=== PATIENT | female | born 1980 | race Caucasian/White ===

== ENCOUNTER 2023-10-31 12:33 | Inpatient (IN) | payer OTHER ==
[2023-10-31] MEDS: SODIUM CHLORIDE 0.9% 1,000 ML IV STA ×2 (13:55→15:26)
[2023-10-31] MEDS: ONDANSETRON 4 MG/2 ML VIAL IVP STA (14:08)
[2023-10-31 14:10] LABS: HCT 43.3 % (34.0-46.0); HGB 14.7 gm/dL (11.4-16.0); MCH 30.8 pg (25.0-35.0); MCV 90.4 fL (80.0-100.0); Mean Platelet Volume 7.3; Platelet Count 266 k/uL (150-450); RBC 4.79 m/uL (3.80-5.40); RDW 13.1 % (11.5-15.5)
[2023-10-31] MEDS: KETOROLAC 15 MG/ML 1 ML VIAL IVP STA (14:10)
[2023-10-31 14:22] LABS: ALT 18 U/L (4-34); AST 26 U/L (14-36); African American GFR (CKD) >90 (>60 ml/min/1.73 sqM); Albumin 3.5 g/dL (3.5-5.0); Alkaline Phosphatase 74 U/L (38-126); Anion Gap 9 mmol/L; Blood Urea Nitrogen 12 mg/dL (7-17); Calcium 8.6 mg/dL (8.4-10.2); Carbon Dioxide 23 mmol/L (22-30); Chloride 105 mmol/L (98-107); Glucose 118 mg/dL (74-99); Non-African American GFR(CKD) >90 (>60 ml/min/1.73 sqM); Potassium 4.4 mmol/L (3.5-5.1); Sodium 137 mmol/L (137-145); Total Bilirubin 0.4 mg/dL (0.2-1.3); Total Protein 6.2 g/dL (6.3-8.2)
--- NOTE | 2023-10-31 14:48 | ED ---
Fever HPI - General Chief Complaint: Fever Stated Complaint: Vomitting, fever, chills Time Seen by Provider: 10/31/23 14:47 Source: patient, RN notes reviewed Mode of arrival: ambulatory Limitations: no limitations - History of Present Illness Initial Comments: Patient is a 43-year-old female presented to the ER with chief complaint of fever. Patient states she has been ill since July 2023. She has been treated multiple times with Augmentin for strep throat. She states about 2 weeks ago she did have a root canal. She reports she was seen by Dr. Maria yesterday and received blood work due to fevers and chills. She is now endorsing nausea and vomiting. She also is reporting head congestion and mouth sores. She denies any chest pain, shortness of breath, abdominal pain, constipation/diarrhea, urinary complaints. - Related Data Home Medications Medication Instructions Recorded Confirmed Amoxic-Pot Clav 500-125 mg 1 tab PO TID 10/31/23 10/31/23 [Augmentin 500-125 mg] Ibuprofen [Motrin] 800 mg PO Q8H PRN 10/31/23 10/31/23 Nystatin 100,000 Unit/ml Susp 4 ml PO DIRECTED 10/31/23 10/31/23 [Mycostatin Oral Susp] valACYclovir HCL [Valtrex] 1,000 mg PO HS 10/31/23 10/31/23 Allergies Allergy/AdvReac Type Severity Reaction Status Date / Time codeine AdvReac Nausea & Verified 10/31/23 16:40 Vomiting Review of Systems ROS Statement: Those systems with pertinent positive or pertinent negative responses have been documented in the HPI. ROS Other: All systems not noted in ROS Statement are negative. Past Medical History Past Medical History: No Reported History History of Any Multi-Drug Resistant Organisms: None Reported Past Surgical History: Section Additional Past Surgical History / Comment(s): ablasion uterine Past Psychological History: No Psychological Hx Reported Smoking Status: Current every day smoker Past Alcohol Use History: Occasional Past Drug Use History: None Reported General Exam General appearance: alert, in no apparent distress Head exam: Present: atraumatic, normocephalic, normal inspection Eye exam: Present: normal appearance, PERRL, EOMI. Absent: scleral icterus, conjunctival injection, periorbital swelling ENT exam: Present: normal exam, mucous membranes moist, TM's normal bilaterally, other (Multiple white ulcers in the mouth. No drainable abscess present.) Neck exam: Present: tenderness (Mandible and TMJ) Respiratory exam: Present: normal lung sounds bilaterally. Absent: respiratory distress, wheezes, rales, rhonchi, stridor Cardiovascular Exam: Present: regular rate, normal rhythm, normal heart sounds. Absent: systolic murmur, diastolic murmur, rubs, gallop, clicks Neurological exam: Present: alert, oriented X3, CN II-XII intact Psychiatric exam: Present: normal affect, normal mood Skin exam: Present: warm, intact, normal color, diaphoretic (Mild) Course Vital Signs 10/31/23 13:08 Temperature 100.7 F H Pulse Rate 112 H Respiratory 18 Rate Blood Pressure 119/69 O2 Sat by Pulse 97 Oximetry - Reevaluation(s) Reevaluation #1: 10/31/23 14:[address] Maria who would like patient admitted. She also reports patient had blood work completed yesterday significant for white blood cell count of 11, neutrophils 10. She would also like Dr. Gillette and cardiology on consult. As she is concerned for endocarditis due to recent dental work. Reevaluation #2: 10/31/23 16:[address] Childers who accepts medical management. Medical Decision Making - Medical Decision Making Was pt. sent in by a medical professional or institution (, PA, TURRET PUNCH OPERATOR, urgent care, hospital, or intermediate...) When possible be specific @ -No Did you speak to anyone other than the patient for history (EMS, parent, family, police, friend...)? What history was obtained from this source @ -No Did you review nursing and triage notes (agree or disagree)? Why? @ -I reviewed and agree with nursing and triage notes Were old charts reviewed (outside hosp., previous admission, EMS record, old EKG, old radiological studies, urgent care reports/EKG's, intermediate records)? Report findings @ -No old charts were reviewed Differential Diagnosis (chest pain, altered mental status, abdominal pain women, abdominal pain men, vaginal bleeding, weakness, fever, dyspnea, syncope, headache, dizziness, GI bleed, back pain, seizure, CVA, palpatations, mental health, musculoskeletal)? @ -[Differential Fever:Pneumonia, viral URI, endocarditis, myocarditis, pericarditis, otitis, sinusitis, peritonsillar Abscess, retropharyngeal Abscess, epiglottitis, peritonitis, appendicitis, Angle cystitis, diverticulitis, hepatitis, colitis, UTI, PID, TOA, pyelonephritis, prostatitis, epididymitis, meningitis, encephalitis, pulmonary embolism, CVA, thyroid storm, pancreatitis, adrenal crisis, cavernous sinus thrombosis, this is not meant to be an all- inclusive list. EKG interpreted by me (3pts min.). @ -None X-rays interpreted by me (1pt min.). @ -X-ray interpreted by me as negative for acute cardiopulmonary process. CT interpreted by me (1pt min.). @ -None done U/S interpreted by me (1pt. min.). @ -None done What testing was considered but not performed or refused? (CT, X-rays, U/S, labs)? Why? @ -None What meds were considered but not given or refused? Why? @ -None Did you discuss the management of the patient with other professionals (professionals i.e. , PA, TURRET PUNCH OPERATOR, lab, RT, psych nurse, social work administrator, manufacturing mechanic, teacher, county records management officer, adult protective caseworker)? Give summary @ -Yes, I spoke with Dr. Maria, PCP, who states she would like patient admitted for infectious workup. Lab work completed yesterday by Dr. Maria significant for WBC 11. She also would like cardiology on consult as she is concerned for possible endocarditis due to recent dental work. I also spoke with Dr. Childers, [facility], who accepts medical admission. Was smoking cessation discussed for >3mins.? @ -No Was critical care preformed (if so, how long)? @ -No Were there social determinants of health that impacted care today? How? (Homelessness, low income, unemployed, alcoholism, drug addiction, transportation, low edu. Level, literacy, decrease access to med. care, penitentiary, rehab)? @ -No Was there de-escalation of care discussed even if they declined (Discuss DNR or withdrawal of care, Hospice)? DNR status @ -No What co-morbidities impacted this encounter? (DM, HTN, Smoking, COPD, CAD, Cancer, CVA, ARF, Chemo, Hep., AIDS, mental health diagnosis, sleep apnea, morbid obesity)? @ -None Was patient admitted / discharged? Hospital course, mention meds given and route, prescriptions, significant lab abnormalities, going to OR and other pertinent info. @ -Admitted. Patient is a 43-year-old female presented to the ER with chief complaint of fever. History and physical exam completed. Vitals significant for temperature of 100F and heart rate of 112 on arrival. Patient no signs of acute distress. Patient was mildly diaphoretic on exam. Patient had multiple ulcers in mouth. Lung sounds clear to auscultation bilaterally. Heart sounds normal. Labs significant for white blood cell count 18, lactic 2.8. Urine without signs of infection. Chest x-ray interpreted by me negative for acute cardiopulmonary process. COVID, influenza, RSV, strep negative. Patient received 2 L IV fluids, Toradol and Zofran for pain control in the ER, with improvement. Admission considered due to leukocytosis and fever of unknown origin. Spoke with Dr. Maria, patient's PCP, who reports yesterday labs significant for white blood cell count of 11 with a left shift. She is concerned for endocarditis due to patient's recent dental work. She would like patient admitted for infectious disease consult. I spoke with Dr. Childers, [facility] physician, who accepts medical admission. Patient started on IV vancomycin and Unasyn. ID and cardiology on consult. Echo ordered. Results discussed with patient, all questions answered. Patient agreeable for admission for further management. Undiagnosed new problem with uncertain prognosis? @ -No Drug Therapy requiring intensive monitoring for toxicity (Heparin, Nitro, Insulin, Cardizem)? @ -No Were any procedures done? @ -No Diagnosis/symptom? @ -Leukocytosis/fever unknown origin Acute, or Chronic, or Acute on Chronic? @ -Acute Uncomplicated (without systemic symptoms) or Complicated (systemic symptoms)? @ -Complicated Side effects of treatment? @ -No Exacerbation, Progression, or Severe Exacerbation? @ -No Poses a threat to life or bodily function? How? (Chest pain, [place], [place], pneumonia, PE, COPD, DKA, ARF, appy, cholecystitis, CVA, Diverticulitis, Homicidal, Suicidal, threat to staff... and all critical care pts) @ -Yes, infection can lead to sepsis which can be life threatening. - Lab Data Result diagrams: 10/31/23 13:50 10/31/23 13:50 Lab Results 10/31/23 10/31/23 10/31/23 Range/Units 13:50 13:50 13:50 WBC 18.0 H (3.8-10.6) k/uL RBC 4.79 (3.80-5.40) m/uL Hgb 14.7 (11.4-16.0) gm/dL Hct 43.3 (34.0-46.0) % MCV 90.4 (80.0-100.0) fL MCH 30.8 (25.0-35.0) pg MCHC 34.0 (31.0-37.0) g/dL RDW 13.1 (11.5-15.5) % Plt Count 266 (150-450) k/uL MPV 7.3 Sodium 137 (137-145) mmol/L Potassium 4.4 (3.5-5.1) mmol/L Chloride 105 (98-107) mmol/L Carbon Dioxide 23 (22-30) mmol/L Anion Gap 9 mmol/L BUN 12 (7-17) mg/dL Creatinine 0.48 L (0.52-1.04) mg/dL Est GFR (CKD-EPI)AfAm >90 (>60 ml/min/1.73 sqM) Est GFR (CKD-EPI)NonAf >90 (>60 ml/min/1.73 sqM) Glucose 118 H (74-99) mg/dL Lactic Ac Sepsis Rflx Plasma Lactic Acid Kade 2.8 H* (0.7-2.0) mmol/L Calcium 8.6 (8.4-10.2) mg/dL Total Bilirubin 0.4 (0.2-1.3) mg/dL AST 26 (14-36) U/L ALT 18 (4-34) U/L Alkaline Phosphatase 74 (38-126) U/L Total Protein 6.2 L (6.3-8.2) g/dL Albumin 3.5 (3.5-5.0) g/dL Urine Color Urine Appearance (Clear) Urine pH (5.0-8.0) Ur Specific Yale (1.001-1.035) Urine Protein (Negative) Urine Glucose (UA) (Negative) Urine Ketones (Negative) Urine Blood (Negative) Urine Nitrite (Negative) Urine Bilirubin (Negative) Urine Urobilinogen (<2.0) mg/dL Ur Leukocyte Esterase (Negative) Urine RBC (0-5) /hpf Urine WBC (0-5) /hpf Ur Squamous Epith Cells (0-4) /hpf Urine Bacteria (None) /hpf Hyaline Casts (0-2) /lpf Urine Mucus (None) /hpf Urine Yeast (Budding) (None) /hpf Urine HCG, Qual (Not Detectd) Influenza Type A (PCR) (Not Detectd) Influenza Type B (PCR) (Not Detectd) RSV (PCR) (Not Detectd) SARS-CoV-2 (PCR) (Not Detectd) Group A Strep (PCR) (Not Detectd) 10/31/23 10/31/23 10/31/23 Range/Units 13:50 13:50 13:50 WBC (3.8-10.6) k/uL RBC (3.80-5.40) m/uL Hgb (11.4-16.0) gm/dL Hct (34.0-46.0) % MCV (80.0-100.0) fL MCH (25.0-35.0) pg MCHC (31.0-37.0) g/dL RDW (11.5-15.5) % Plt Count (150-450) k/uL MPV Sodium (137-145) mmol/L Potassium (3.5-5.1) mmol/L Chloride (98-107) mmol/L Carbon Dioxide (22-30) mmol/L Anion Gap mmol/L BUN (7-17) mg/dL Creatinine (0.52-1.04) mg/dL Est GFR (CKD-EPI)AfAm (>60 ml/min/1.73 sqM) Est GFR (CKD-EPI)NonAf (>60 ml/min/1.73 sqM) Glucose (74-99) mg/dL Lactic Ac Sepsis Rflx Plasma Lactic Acid Kade (0.7-2.0) mmol/L Calcium (8.4-10.2) mg/dL Total Bilirubin (0.2-1.3) mg/dL AST (14-36) U/L ALT (4-34) U/L Alkaline Phosphatase (38-126) U/L Total Protein (6.3-8.2) g/dL Albumin (3.5-5.0) g/dL Urine Color Light Yellow Urine Appearance Cloudy H (Clear) Urine pH 5.5 (5.0-8.0) Ur Specific Yale 1.019 (1.001-1.035) Urine Protein Trace H (Negative) Urine Glucose (UA) Negative (Negative) Urine Ketones 4+ H (Negative) Urine Blood Small H (Negative) Urine Nitrite Negative (Negative) Urine Bilirubin Negative (Negative) Urine Urobilinogen <2.0 (<2.0) mg/dL Ur Leukocyte Esterase Negative (Negative) Urine RBC 8 H (0-5) /hpf Urine WBC 8 H (0-5) /hpf Ur Squamous Epith Cells 17 H (0-4) /hpf Urine Bacteria Rare H (None) /hpf Hyaline Casts 1 (0-2) /lpf Urine Mucus Rare H (None) /hpf Urine Yeast (Budding) Few H (None) /hpf Urine HCG, Qual (Not Detectd) Influenza Type A (PCR) Not Detected (Not Detectd) Influenza Type B (PCR) Not Detected (Not Detectd) RSV (PCR) Not Detected (Not Detectd) SARS-CoV-2 (PCR) Not Detected (Not Detectd) Group A Strep (PCR) NOT DETECTED (Not Detectd) 10/31/23 10/31/23 Range/Units 13:50 14:24 WBC (3.8-10.6) k/uL RBC (3.80-5.40) m/uL Hgb (11.4-16.0) gm/dL Hct (34.0-46.0) % MCV (80.0-100.0) fL MCH (25.0-35.0) pg MCHC (31.0-37.0) g/dL RDW (11.5-15.5) % Plt Count (150-450) k/uL MPV Sodium (137-145) mmol/L Potassium (3.5-5.1) mmol/L Chloride (98-107) mmol/L Carbon Dioxide (22-30) mmol/L Anion Gap mmol/L BUN (7-17) mg/dL Creatinine (0.52-1.04) mg/dL Est GFR (CKD-EPI)AfAm (>60 ml/min/1.73 sqM) Est GFR (CKD-EPI)NonAf (>60 ml/min/1.73 sqM) Glucose (74-99) mg/dL Lactic Ac Sepsis Rflx Y Plasma Lactic Acid Kade (0.7-2.0) mmol/L Calcium (8.4-10.2) mg/dL Total Bilirubin (0.2-1.3) mg/dL AST (14-36) U/L ALT (4-34) U/L Alkaline Phosphatase (38-126) U/L Total Protein (6.3-8.2) g/dL Albumin (3.5-5.0) g/dL Urine Color Urine Appearance (Clear) Urine pH (5.0-8.0) Ur Specific Yale (1.001-1.035) Urine Protein (Negative) Urine Glucose (UA) (Negative) Urine Ketones (Negative) Urine Blood (Negative) Urine Nitrite (Negative) Urine Bilirubin (Negative) Urine Urobilinogen (<2.0) mg/dL Ur Leukocyte Esterase (Negative) Urine RBC (0-5) /hpf Urine WBC (0-5) /hpf Ur Squamous Epith Cells (0-4) /hpf Urine Bacteria (None) /hpf Hyaline Casts (0-2) /lpf Urine Mucus (None) /hpf Urine Yeast (Budding) (None) /hpf Urine HCG, Qual Not Detected (Not Detectd) Influenza Type A (PCR) (Not Detectd) Influenza Type B (PCR) (Not Detectd) RSV (PCR) (Not Detectd) SARS-CoV-2 (PCR) (Not Detectd) Group A Strep (PCR) (Not Detectd) - Radiology Data Radiology results: report reviewed, image reviewed Disposition Clinical Impression: Leukocytosis, Fever Disposition: ADMITTED IP TO THIS HOSP Condition: Fair Time of Disposition: 16:04
[2023-10-31 14:55] LABS: Appearance,Urine Cloudy (Clear); Bacteria,Urine Rare /hpf; Bilirubin,Urine Negative (Negative); Blood,Urine Small (Negative); Budding Yeast,Urine Few /hpf; Color,Urine Light Yellow; Glucose,Urine (UA) Negative (Negative); Hyaline Casts,Urine 1 /lpf (0-2); Ketones,Urine 4+ (Negative); Leukocyte Esterase,Urine Negative (Negative); Mucus,Urine Rare /hpf; Nitrite,Urine Negative (Negative); PH, Urine 5.5 (5.0-8.0); Protein,Urine Trace (Negative); RBC,Urine 8 /hpf (0-5); Specific Gravity,Urine 1.019 (1.001-1.035); Squamous Epithelial Cell,Urine 17 /hpf (0-4); Urobilinogen,Urine <2.0 mg/dL (<2.0); WBC,Urine 8 /hpf (0-5)
--- NOTE | 2023-10-31 15:45 | XR ---
EXAMINATION TYPE: XR chest 2V DATE OF EXAM: 10/31/2023 COMPARISON: None HISTORY: 43-year-old female with fever, nausea, vomiting TECHNIQUE: PA and lateral views FINDINGS: The cardiomediastinal silhouette, aorta, and pulmonary vasculature are within normal limits. Lungs an d pleural spaces are clear. IMPRESSION: No acute cardiopulmonary process.
[2023-10-31] MEDS ORDERED: VANCOMYCIN IV PER PHARMACY 1 EACH MISC MISCELLANE PRN (16:00)
[2023-10-31] MEDS ORDERED: NALOXONE 0.4 MG/ML 1 ML VIAL IV PRN (16:01)
[2023-10-31] MEDS: AMPICILLIN-SULBACTAM 3 GM in SODIUM CHLORIDE 0.9% 100 ML IVPB STA (16:26)
[2023-10-31] MEDS: ACETAMINOPHEN TAB 325 MG TAB PO STA (16:27)
[2023-10-31] MEDS: ONDANSETRON 4 MG/2 ML VIAL IVP PRN (17:19)
[2023-10-31] MEDS: VANCOMYCIN 1,250 MG in SODIUM CHLORIDE 0.9% 250 ML IVPB STA (17:20)
[2023-10-31] MEDS: SODIUM CHLORIDE 0.9% 1,000 ML IV SCH (18:04)
--- NOTE | 2023-10-31 21:57 | P.CONS ---
History of Present Illness - Reason for Consult Consult date: 10/31/23 - History of Present Illness Patient is a 43-year-old female current everyday smoker complaining of recurrent infection since July 2023 patient mention she did have strep throat x 3 and also have a COVID-19 and infected tooth for the patient did have a CT done patient presenting to the ER concerning for fever that apparently getting worse for the last few days patient complaining of pain to the bilateral lower jaw area describing it to be mostly throbbing moderate intensity without any radiation complaining of some sore throat but denies difficulty swallowing. Denies having any chest pain she did have a cough but not bring up any sputum nausea but no vomiting no abdominal pain or any diarrhea patient on presentation to the hospital did have a fever 100.7 F, patient was tachycardic but not hypotensive or hypoxic white count was 18,000 creatinine 0.48 lactic acid was elevated urine has been positive influenza RSV COVID testing has been negative patient did have a chest x-ray no acute cardiopulmonary disease process patient received a dose of Unasyn subsequently switched to vancomycin infectious disease was consulted for further management of antibiotic therapy Past Medical History Past Medical History: No Reported History History of Any Multi-Drug Resistant Organisms: None Reported Past Surgical History: Section Additional Past Surgical History / Comment(s): ablasion uterine Past Psychological History: No Psychological Hx Reported Smoking Status: Current every day smoker Past Alcohol Use History: Occasional Past Drug Use History: None Reported Medications and Allergies Home Medications Medication Instructions Recorded Confirmed Type Amoxic-Pot Clav 500-125 mg 1 tab PO TID 10/31/23 10/31/23 History [Augmentin 500-125 mg] Ibuprofen [Motrin] 800 mg PO Q8H PRN 10/31/23 10/31/23 History Nystatin 100,000 Unit/ml Susp 4 ml PO DIRECTED 10/31/23 10/31/23 History [Mycostatin Oral Susp] valACYclovir HCL [Valtrex] 1,000 mg PO HS 10/31/23 10/31/23 History Allergies Allergy/AdvReac Type Severity Reaction Status Date / Time codeine AdvReac Nausea & Verified 10/31/23 16:40 Vomiting Physical Exam Vitals: Vital Signs Temp Pulse Resp BP Pulse Ox 10/31/23 13:08 100.7 F H 112 H 18 119/69 97 Intake and Output 03/02/1710/31/23 10/31/23 06:59 14:59 22:59 Other: Weight 60.781 kg Results CBC & Chem 7: 10/31/23 13:50 10/31/23 13:50 Labs: Abnormal Lab Results - Last 24 Hours (Table) 10/31/23 10/31/23 10/31/23 Range/Units 13:50 13:50 13:50 WBC 18.0 H (3.8-10.6) k/uL Creatinine 0.48 L (0.52-1.04) mg/dL Glucose 118 H (74-99) mg/dL Plasma Lactic Acid Kade 2.8 H* (0.7-2.0) mmol/L Total Protein 6.2 L (6.3-8.2) g/dL Urine Appearance (Clear) Urine Protein (Negative) Urine Ketones (Negative) Urine Blood (Negative) Urine RBC (0-5) /hpf Urine WBC (0-5) /hpf Ur Squamous Epith Cells (0-4) /hpf Urine Bacteria (None) /hpf Urine Mucus (None) /hpf Urine Yeast (Budding) (None) /hpf 10/31/23 Range/Units 13:50 WBC (3.8-10.6) k/uL Creatinine (0.52-1.04) mg/dL Glucose (74-99) mg/dL Plasma Lactic Acid Kade (0.7-2.0) mmol/L Total Protein (6.3-8.2) g/dL Urine Appearance Cloudy H (Clear) Urine Protein Trace H (Negative) Urine Ketones 4+ H (Negative) Urine Blood Small H (Negative) Urine RBC 8 H (0-5) /hpf Urine WBC 8 H (0-5) /hpf Ur Squamous Epith Cells 17 H (0-4) /hpf Urine Bacteria Rare H (None) /hpf Urine Mucus Rare H (None) /hpf Urine Yeast (Budding) Few H (None) /hpf Assessment and Plan Plan: 1patient presented to hospital with sepsis in this patient who did have fever elevated white count elevated lactic acid source likely infected tooth and the patient did have significant purulent tonsillopharyngitis especially to the left side and will need to cover for the polymicrobial oral antoni 2-Unasyn 3 g every 6 hours and discontinue vancomycin 3-we will check cultures and inflammatory markers We will follow on clinical condition and cultures to further adjust medication if needed Thank you for this consultation we will follow the patient along with you Dictation was produced using [employer] dictation software. please excuse any grammatical, word or spelling errors.
[2023-10-31] MEDS ORDERED: NYSTATIN 100,000 UNIT/ML SUSP 500,000 UNIT/5 ML CUP PO SCH (22:00)
[2023-10-31] MEDS: KETOROLAC 15 MG/ML 1 ML VIAL IVP PRN (22:30)
[2023-10-31] MEDS: AMPICILLIN-SULBACTAM 3 GM in SODIUM CHLORIDE 0.9% 100 ML IVPB SCH (22:31)
[2023-10-31] MEDS: TRIMETHOBENZAMIDE 100 MG/ML 2 ML VIAL IM STA (22:32)
[2023-11-01] MEDS ORDERED: VANCOMYCIN 1,000 MG in SODIUM CHLORIDE 0.9% 250 ML IVPB SCH (01:00)
[2023-11-01] MEDS: ONDANSETRON 4 MG/2 ML VIAL IVP PRN (04:18)
--- NOTE | 2023-11-01 09:01 | P.CRDCN ---
History of Present Illness Consult date: 11/01/23 History of present illness: History of present illness: This is a 43-year-old female has a past medical history of tobacco use and dependence. Patient has been treated for strep throat since July on multiple courses of antibiotics. She also underwent a root canal 2 weeks ago. She followed with her PCP yesterday was found to have fever and chills as well as nausea and vomiting was sent into the hospital for further evaluation. We have been asked to evaluate the patient for leukocytosis and fever. Patient denies having any chest pain, no previous cardiac history. Patient has been seen by infectious disease and covered with antibiotics. Chest x-ray: No acute process WBC 18, hemoglobin 14.7 electrolytes normal. BUN 12 creatinine 0.48. Lactic acid initially 2.8 followed by 0.6. Liver enzymes are normal. Urinalysis 4+ ketones, small blood, squamous cell 17. Urine hCG not detected. Influenza A, influenza B, RSV, COVID-19, group A strep not detected. Home cardiac medications: None Review Of Systems: At the time of my exam: CONSTITUTIONAL: Denies fever or chills. HEENT: Denies blurred vision, vision changes, or eye pain. Denies hemoptysis. Pain bilateral jaw. CARDIOVASCULAR: Denies chest pain. Denies orthopnea. Denies PND. Denies palpitations RESPIRATORY: Denies shortness of breath. GASTROINTESTINAL: Denies abdominal pain. Denies nausea or vomiting. HEMATOLOGIC: Denies bleeding disorders. GENITOURINARY: Denies any blood in urine. SKIN: Denies pruitis. Denies rash. Physical examination: Gen: This is a 43-year-old female in no acute distress VS: reviewed HEENT: Head is atraumatic, normocephalic. Pupils equal, round. Sclerae is ani cteric. NECK: Supple. No JVD. LUNGS: Clear to auscultation. No wheezes or rhonchi. No intercostal retractions. HEART: Regular rate and rhythm. No murmur. ABDOMEN: Soft No tenderness. EXTREMITIES: No pedal edema. No calf tenderness. NEUROLOGICAL: Patient is awake, alert and oriented x3. Assessment: Jaw pain Recent root canal Recent strep throat Tobacco use and dependence Fever, leukocytosis Lactic acidosis Plan: Obtain EKG Obtain 2-D echocardiogram and Doppler study to assess cardiac structure and function Further recommendations to follow based upon clinical course Thank you kindly for this consultation. Nurse practitioner note has been reviewed, I agree with documented findings and plan of care. Patient was seen and examined. Past Medical History Past Medical History: No Reported History Additional Past Medical History / Comment(s): Smoker History of Any Multi-Drug Resistant Organisms: None Reported Past Surgical History: Section Additional Past Surgical History / Comment(s): ablasion uterine Past Anesthesia/Blood Transfusion Reactions: No Reported Reaction Past Psychological History: No Psychological Hx Reported Smoking Status: Current every day smoker Past Alcohol Use History: Occasional Past Drug Use History: None Reported Medications and Allergies Home Medications Medication Instructions Recorded Confirmed Type Amoxic-Pot Clav 500-125 mg 1 tab PO TID 10/31/23 10/31/23 History [Augmentin 500-125 mg] Ibuprofen [Motrin] 800 mg PO Q8H PRN 10/31/23 10/31/23 History Nystatin 100,000 Unit/ml Susp 4 ml PO DIRECTED 10/31/23 10/31/23 History [Mycostatin Oral Susp] valACYclovir HCL [Valtrex] 1,000 mg PO HS 10/31/23 10/31/23 History Allergies Allergy/AdvReac Type Severity Reaction Status Date / Time codeine AdvReac Nausea & Verified 10/31/23 16:40 Vomiting Physical Exam Vitals: Vital Signs Temp Pulse Pulse Resp BP BP Pulse Ox 11/01/23 07:11 98.3 F 78 16 119/68 99 11/01/23 04:20 97 16 127/77 98 10/31/23 22:00 16 10/31/23 21:20 98.8 F 77 16 125/78 98 10/31/23 20:26 98.5 F 82 18 124/69 97 10/31/23 18:40 99.2 F 99 20 112/65 99 10/31/23 17:30 98.5 F 85 18 117/70 100 10/31/23 16:16 98.6 F 82 16 117/78 99 10/31/23 15:40 98.8 F 85 18 118/70 99 10/31/23 14:35 98.5 F 75 16 115/72 100 10/31/23 13:08 100.7 F H 112 H 18 119/69 97 Intake and Output 10/31/23 11/01/23 11/01/23 22:59 06:59 14:59 Other: Voiding Method Toilet # Voids 3 Weight 60.781 kg Results 10/31/23 13:50 10/31/23 13:50 Cardiac Enzymes 10/31/23 Range/Units 13:50 AST 26 (14-36) U/L CBC 10/31/23 Range/Units 13:50 WBC 18.0 H (3.8-10.6) k/uL RBC 4.79 (3.80-5.40) m/uL Hgb 14.7 (11.4-16.0) gm/dL Hct 43.3 (34.0-46.0) % Plt Count 266 (150-450) k/uL Comprehensive Metabolic Panel 10/31/23 Range/Units 13:50 Sodium 137 (137-145) mmol/L Potassium 4.4 (3.5-5.1) mmol/L Chloride 105 (98-107) mmol/L Carbon Dioxide 23 (22-30) mmol/L BUN 12 (7-17) mg/dL Creatinine 0.48 L (0.52-1.04) mg/dL Glucose 118 H (74-99) mg/dL Calcium 8.6 (8.4-10.2) mg/dL AST 26 (14-36) U/L ALT 18 (4-34) U/L Alkaline Phosphatase 74 (38-126) U/L Total Protein 6.2 L (6.3-8.2) g/dL Albumin 3.5 (3.5-5.0) g/dL Current Medications Generic Name Dose Route Start Last Admin Trade Name Freq PRN Reason Stop Dose Admin Sodium Chloride 1,000 mls @ 75 mls/hr 10/31/23 16:15 11/01/23 05:41 Saline 0.9% IV Not Given .[id number] BRANT Ampicillin Sodium/Sulbactam 100 mls @ 200 mls/hr 10/31/23 22:15 11/01/23 04:18 Sodium 3 gm/ Sodium Chloride IVPB 200 mls/hr Q6H BRANT Administration Protocol Ketorolac Tromethamine 15 mg 10/31/23 16:01 11/01/23 04:18 Ketorolac 15 Mg/Ml 1 Ml Vial IVP 11/03/23 16:02 15 mg Q6HR PRN Administration Moderate Pain (Scale 4 to 6) Naloxone HCl 0.2 mg 10/31/23 16:01 Naloxone 0.4 Mg/Ml 1 Ml Vial IV Q2M PRN Opioid Reversal Ondansetron HCl 4 mg 10/31/23 21:50 11/01/23 04:18 Ondansetron 4 Mg/2 Ml Vial IVP 4 mg Q6H PRN Administration Nausea And Vomiting Intake and Output 10/31/23 11/01/23 11/01/23 22:59 06:59 14:59 Other: Voiding Method Toilet # Voids 3 Weight 60.781 kg 10/31/23 13:50 10/31/23 13:50
--- NOTE | 2023-11-01 10:35 | CA ---
Transthoracic Echo Report Name: Mali Clark Age: 43 Gender: F : 1980 Exam Date: 10/31/2023 17:25 Exam Location: [facility] Ht (in): 63 Wt (lb): 134 Ordering Physician: Karen De Paz Attending/Referring Phys: Mirror Polisher Glen Calabrese RDCS Procedure CPT: Indications: fever unknown orgin/leukocytosis Cardiac Hx: Technical Quality: Contrast 1: Total Dose (mL): Contrast 2: Total Dose (mL): MEASUREMENTS (Male / Female) Normal Values 2D ECHO LV Diastolic Diameter PLAX 3.9 cm 4.2 - 5.9 / 3.9 - 5.3 cm LV Systolic Diameter PLAX 2.6 cm IVS Diastolic Thickness 0.9 cm 0.6 - 1.0 / 0.6 - 0.9 cm LVPW Diastolic Thickness 0.8 cm 0.6 - 1.0 / 0.6 - 0.9 cm LV Relative Wall Thickness 0.4 LVOT Diameter 2.1 cm Aortic Root Diameter 3.0 cm LA Systolic Diameter LX 3.1 cm 3.0 - 4.0 / 2.7 - 3.8 cm DOPPLER AV Peak Velocity 162.0 cm/s AV Peak Gradient 10.5 mmHg AV Mean Velocity 128.3 cm/s AV Mean Gradient 6.9 mmHg AV Velocity Time Integral 29.6 cm LVOT Peak Velocity 122.4 cm/s LVOT Peak Gradient 6.0 mmHg LVOT Velocity Time Integral 26.2 cm LVOT Stroke Volume 90.9 cm??? LVOT Stroke Volume Index 55.7 ml/m??? LVOT Cardiac Index 4950.8 cm???/min???m??? AV Area Cont Eq vti 3.1 cm??? AV Area Cont Eq pk 2.6 cm??? Mitral E Point Velocity 102.6 cm/s Mitral A Point Velocity 94.5 cm/s Mitral E to A Ratio 1.1 MV Deceleration Time 144.7 ms MV E' Velocity 12.7 cm/s Mitral E to MV E' Ratio 8.1 PV Peak Velocity 108.8 cm/s PV Peak Gradient 4.7 mmHg FINDINGS Left Ventricle Left ventricular ejection fraction is estimated at 55-60 %. Normal left ventricular systolic function with no obvious regional wall motion abnormalities. Right Ventricle Normal right ventricular size. Right Atrium Normal right atrial size. Left Atrium Normal left atrial size. Mitral Valve Trace mitral regurgitation. Aortic Valve Trileaflet aortic valve. Tricuspid Valve Trace tricuspid regurgitation. Pulmonic Valve No pulmonic regurgitation. Pericardium No pericardial effusion. Aorta Normal size aortic root and proximal ascending aorta. CONCLUSIONS Normal LV function Previewed by: Dr. Hector Jenkins MD (Electronically Signed) Final Date: 01 November 2023 10:34
[2023-11-01 10:51] LABS: Basophils # (A) 0.03 X 10*3/uL (0.00-0.10); Basophils % (A) 0.3 %; Eosinophils # (A) 0.06 X 10*3/uL (0.04-0.35); Eosinophils % (A) 0.5 %; HCT 36.7 % (37.2-46.3); HGB 12.6 g/dL (12.0-15.0); Lymphocytes # (A) 1.41 X 10*3/uL (0.90-5.00); Lymphocytes % (A) 12.6 %; MCH 30.5 pg (27.0-32.0); MCHC 34.3 g/dL (32.0-37.0); MCV 88.9 FL (80.0-97.0); Mean Platelet Volume 9.6 FL (9.5-12.2); Monocytes # (A) 0.95 X 10*3/uL (0.20-1.00); Monocytes % (A) 8.5 %; NRBC Per 100 WBC 0 X 10*3/uL (0.00-0.01); Neutrophils # (A) 8.76 X 10*3/uL (1.80-7.70); Neutrophils % (A) 77.9 %; Platelet Count 254 X 10*3/uL (140-440); RBC 4.13 X 10*6/uL (4.10-5.20); RDW 13.2 % (11.5-14.5); WBC 11.23 X 10*3/uL (4.50-10.00)
[2023-11-01 11:10] LABS: ALT 14 U/L (8-44); AST 28 U/L (13-35); Albumin 3.4 g/dL (3.8-4.9); Albumin/Globulin Ratio 1.62 Ratio (1.60-3.17); Alkaline Phosphatase 58 U/L (41-126); Blood Urea Nitrogen 9.2 mg/dL (9.0-27.0); Calcium 8.2 mg/dL (8.7-10.3); Carbon Dioxide 18.6 mmol/L (21.6-31.8); Chloride 105 mmol/L (96-109); Globulin 2.1 g/dL (1.6-3.3); Glucose 63 mg/dL (70-110); Potassium 3.7 mmol/L (3.5-5.5); Sodium 138 mmol/L (135-145); Total Bilirubin <0.2 mg/dL (0.3-1.2); Total Protein 5.5 g/dL (6.2-8.2)
[2023-11-01 11:45] LABS: Erythrocyte Sedimentation Rate 23 mm/Hr (0-20)
--- NOTE | 2023-11-01 13:46 | P.HPIM ---
History of Present Illness This is a pleasant 43 years old female with no significant past medical history. Who presents because of tooth/mouth infection. Patient is feeling discomfort in her mouth for a few days. She went to see her PCP Dr. Maria who prescribed her antibiotic for fewdays but patient did not fill it up. Patient is complaining from ringing sound in her right ear that is going on since September 26. Patient also has recurrent vomiting but no blood No abdominal pain. She has poor appetite. Patient with no bowel movements for a few days. She has heartburn She denies chest pain or dyspnea. No urinary complaints. No headache dizziness weakness or numbness. She denies smoking alcohol or illicit drugs. Patient had low-grade fever on admission 100.7. Rest of vitals are stable She has mild leukocytosis 18,000 came down to 11.2 Rest of labs including BMP liver enzymes were unremarkable Urine analysis is unremarkable but looks concentrated sample Influenza A and type B, RSV, SARS (coronavirus) are and detected Group A streptococcus is negative Chest x-ray is negative for acute process and I reviewed by myself ESR is mildly elevated 23 as well as CRP at 51 Lactic acid was elevated came back to normal Patient started on Unasyn. IV vancomycin was discontinued and normal saline 75 mL/h Review of Systems Review of systems CONSTITUTIONAL: No fever, no malaise, no fatigue. HEENT: No recent visual problems or hearing problems. Denied any sore throat. CARDIOVASCULAR: No orthopnea, PND, no palpitations, no syncope. PULMONARY: No shortness of breath, no cough, no hemoptysis. GASTROINTESTINAL: No diarrhea, no nausea, no vomiting, no abdominal pain. Normoactive bowel sounds. NEUROLOGICAL: No headaches, no weakness, no numbness. HEMATOLOGICAL: Denies any bleeding or petechiae. GENITOURINARY: Denies any burning micturition, frequency, or urgency. MUSCULOSKELETAL/RHEUMATOLOGICAL: Denies any joint pain, swelling, or any muscle pain. ENDOCRINE: Denies any polyuria or polydipsia. Past Medical History Past Medical History: No Reported History Additional Past Medical History / Comment(s): Smoker History of Any Multi-Drug Resistant Organisms: None Reported Past Surgical History: Section Additional Past Surgical History / Comment(s): ablasion uterine Past Anesthesia/Blood Transfusion Reactions: No Reported Reaction Past Psychological History: No Psychological Hx Reported Smoking Status: Current every day smoker Past Alcohol Use History: Occasional Past Drug Use History: None Reported Medications and Allergies Home Medications Medication Instructions Recorded Confirmed Type Amoxic-Pot Clav 500-125 mg 1 tab PO TID 10/31/23 10/31/23 History [Augmentin 500-125 mg] Ibuprofen [Motrin] 800 mg PO Q8H PRN 10/31/23 10/31/23 History Nystatin 100,000 Unit/ml Susp 4 ml PO DIRECTED 10/31/23 10/31/23 History [Mycostatin Oral Susp] valACYclovir HCL [Valtrex] 1,000 mg PO HS 10/31/23 10/31/23 History Allergies Allergy/AdvReac Type Severity Reaction Status Date / Time codeine AdvReac Nausea & Verified 10/31/23 16:40 Vomiting Physical Exam Vitals: Vital Signs Temp Pulse Pulse Resp BP BP Pulse Ox 11/01/23 07:11 98.3 F 78 16 119/68 99 11/01/23 04:20 97 16 127/77 98 10/31/23 22:00 16 10/31/23 21:20 98.8 F 77 16 125/78 98 10/31/23 20:26 98.5 F 82 18 124/69 97 10/31/23 18:40 99.2 F 99 20 112/65 99 10/31/23 17:30 98.5 F 85 18 117/70 100 10/31/23 16:16 98.6 F 82 16 117/78 99 10/31/23 15:40 98.8 F 85 18 118/70 99 10/31/23 14:35 98.5 F 75 16 115/72 100 Intake and Output 10/31/23 11/01/23 11/01/23 22:59 06:59 14:59 Other: Voiding Method Toilet Toilet # Voids 3 Weight 60.781 kg GENERAL: The patient is alert and oriented x3, not in any acute distress. Well developed, well nourished. -HEENT: Pupils are round and equally reacting to light. EOMI. No scleral icterus. No conjunctival pallor. Normocephalic, atraumatic. No pharyngeal erythema. No thyromegaly. Multiple mouth ulcers including frontal lips with yellow discharge on the surface. Bilateral tonsillar enlargement left more than right and there is white-yellow discharge on the left side. Both tonsils are tender on external exam CARDIOVASCULAR: S1 and S2 present. No murmurs, rubs, or gallops. PULMONARY: Chest is clear to auscultation, no wheezing , no crackles. ABDOMEN: Soft, nontender, nondistended, normoactive bowel sounds. No palpable organomegaly. MUSCULOSKELETAL: No joint swelling or deformity. EXTREMITIES: No cyanosis, clubbing, or pedal edema. NEUROLOGICAL: Gross neurological examination did not reveal any focal deficits. SKIN: No rashes. no petechiae. Results CBC & Chem 7: 11/01/23 06:27 11/01/23 06:27 Labs: Abnormal Lab Results - Last 24 Hours (Table) 10/31/23 10/31/23 10/31/23 Range/Units 13:50 13:50 13:50 WBC 18.0 H (3.8-10.6) k/uL Hct (37.2-46.3) % Neutrophils # (1.80-7.70) X 10*3/uL ESR (0-20) mm/Hr Carbon Dioxide (21.6-31.8) mmol/L Anion Gap (4.00-12.00) mmol/L Creatinine 0.48 L (0.52-1.04) mg/dL Glucose 118 H (74-99) mg/dL Plasma Lactic Acid Kade 2.8 H* (0.7-2.0) mmol/L Calcium (8.7-10.3) mg/dL Total Bilirubin (0.3-1.2) mg/dL C-Reactive Protein (0.00-0.80) mg/dL Total Protein 6.2 L (6.3-8.2) g/dL Albumin (3.8-4.9) g/dL Urine Appearance (Clear) Urine Protein (Negative) Urine Ketones (Negative) Urine Blood (Negative) Urine RBC (0-5) /hpf Urine WBC (0-5) /hpf Ur Squamous Epith Cells (0-4) /hpf Urine Bacteria (None) /hpf Urine Mucus (None) /hpf Urine Yeast (Budding) (None) /hpf 10/31/23 10/31/23 11/01/23 Range/Units 13:50 16:35 06:27 WBC 11.23 H (3.8-10.6) k/uL Hct 36.7 L (37.2-46.3) % Neutrophils # 8.76 H (1.80-7.70) X 10*3/uL ESR 23 H (0-20) mm/Hr Carbon Dioxide (21.6-31.8) mmol/L Anion Gap (4.00-12.00) mmol/L Creatinine (0.52-1.04) mg/dL Glucose (74-99) mg/dL Plasma Lactic Acid Kade 0.6 L (0.7-2.0) mmol/L Calcium (8.7-10.3) mg/dL Total Bilirubin (0.3-1.2) mg/dL C-Reactive Protein (0.00-0.80) mg/dL Total Protein (6.3-8.2) g/dL Albumin (3.8-4.9) g/dL Urine Appearance Cloudy H (Clear) Urine Protein Trace H (Negative) Urine Ketones 4+ H (Negative) Urine Blood Small H (Negative) Urine RBC 8 H (0-5) /hpf Urine WBC 8 H (0-5) /hpf Ur Squamous Epith Cells 17 H (0-4) /hpf Urine Bacteria Rare H (None) /hpf Urine Mucus Rare H (None) /hpf Urine Yeast (Budding) Few H (None) /hpf 11/01/23 Range/Units 06:27 WBC (3.8-10.6) k/uL Hct (37.2-46.3) % Neutrophils # (1.80-7.70) X 10*3/uL ESR (0-20) mm/Hr Carbon Dioxide 18.6 L (21.6-31.8) mmol/L Anion Gap 14.40 H (4.00-12.00) mmol/L Creatinine 0.5 L (0.52-1.04) mg/dL Glucose 63 L (74-99) mg/dL Plasma Lactic Acid Kade (0.7-2.0) mmol/L Calcium 8.2 L (8.7-10.3) mg/dL Total Bilirubin <0.2 L (0.3-1.2) mg/dL C-Reactive Protein 5.10 H (0.00-0.80) mg/dL Total Protein 5.5 L (6.3-8.2) g/dL Albumin 3.4 L (3.8-4.9) g/dL Urine Appearance (Clear) Urine Protein (Negative) Urine Ketones (Negative) Urine Blood (Negative) Urine RBC (0-5) /hpf Urine WBC (0-5) /hpf Ur Squamous Epith Cells (0-4) /hpf Urine Bacteria (None) /hpf Urine Mucus (None) /hpf Urine Yeast (Budding) (None) /hpf Thrombosis Risk Factor Assmnt - Choose All That Apply Any of the Below Risk Factors Present?: Yes Each Factor Represents 1 point: Age 41-60 years Thrombosis Risk Factor Assessment Total Risk Factor Score: 1 Thrombosis Risk Factor Assessment Level: Low Risk Assessment and Plan Assessment: bilateral tonsillitis with multiple mouth ulcers And white-yellow exudate Sepsis with fever and leukocytosis Recurrent nausea vomiting and dehydration secondary to above with elevated lactic acid came back to normal Plan: Continue with antibiotic Continue with gentle hydration Infectious disease and ENT consults Follow-up culture results Labs and medication were reviewed.. Continue same treatment. Continue with symptomatic treatment. Resume home medication. Monitor labs and vitals. DVT a nd GI prophylaxis. Further recommendations as per clinical course of the patient DVT prophylaxis: Subcutaneous he Lovenox GI Prophylaxis: Pepcid Prognosis is guarded
[2023-11-01] MEDS: MAG HYDROX/AL HYDROX/SIMETH 30 ML, LIDOCAINE VISCOUS 2% 30 ML, diphenhydrAMINE ELIXIR 7... PO SCH (14:30)
--- NOTE | 2023-11-01 15:48 | P.PN ---
Subjective Progress Note Date: 11/01/23 Principal diagnosis: Reason for follow-up is fever infected tooth/tonsillopharyngitis Patient is a 43-year-old female current everyday smoker complaining of recurrent infection since July 2023, presented to hospital per advice of her primary care physician for further evaluation recently did have a right lower jaw infected tooth requiring RCT and the patient also noticed to have significant left sided tonsillopharyngitis. On today's visit that is 11/01/2023 patient did have resolution of her fever and is afebrile this morning patient is still complaining of facial and lower jaw pain however denies any difficulty swallowing complaining of some shortness of breath but no cough or sputum production did have some nausea but no vomiting and no diarrhea Patient white count is down to 11.23 creatinine 0.5 cultures are currently pending Objective - Vital Signs Vital signs: Vital Signs Temp 98.3 F 11/01/23 07:11 Pulse 78 11/01/23 07:11 Resp 16 11/01/23 07:11 BP 119/68 11/01/23 07:11 Pulse Ox 99 11/01/23 07:11 FiO2 Intake & Output 10/31/23 11/01/23 11/01/23 18:59 06:59 18:59 Weight 60.781 kg 60.781 kg Other: Voiding Method Toilet # Voids 3 - Exam GENERAL DESCRIPTION: Middle-age male lying in bed in no distress HEENT; did have extensive left tonsillopharyngitis with pus points RESPIRATORY SYSTEM: Unlabored breathing , decreased breath sounds at bases HEART: S1 S2 regular rate and rhythm , ABDOMEN: Soft , no tenderness EXTREMITIES: No edema feet - Labs CBC & Chem 7: 11/01/23 06:27 11/01/23 06:27 Labs: Abnormal Lab Results - Last 24 Hours (Table) 10/31/23 10/31/23 10/31/23 Range/Units 13:50 13:50 13:50 WBC 18.0 H (3.8-10.6) k/uL Creatinine 0.48 L (0.52-1.04) mg/dL Glucose 118 H (74-99) mg/dL Plasma Lactic Acid Kade 2.8 H* (0.7-2.0) mmol/L Total Protein 6.2 L (6.3-8.2) g/dL Urine Appearance (Clear) Urine Protein (Negative) Urine Ketones (Negative) Urine Blood (Negative) Urine RBC (0-5) /hpf Urine WBC (0-5) /hpf Ur Squamous Epith Cells (0-4) /hpf Urine Bacteria (None) /hpf Urine Mucus (None) /hpf Urine Yeast (Budding) (None) /hpf 10/31/23 10/31/23 Range/Units 13:50 16:35 WBC (3.8-10.6) k/uL Creatinine (0.52-1.04) mg/dL Glucose (74-99) mg/dL Plasma Lactic Acid Kade 0.6 L (0.7-2.0) mmol/L Total Protein (6.3-8.2) g/dL Urine Appearance Cloudy H (Clear) Urine Protein Trace H (Negative) Urine Ketones 4+ H (Negative) Urine Blood Small H (Negative) Urine RBC 8 H (0-5) /hpf Urine WBC 8 H (0-5) /hpf Ur Squamous Epith Cells 17 H (0-4) /hpf Urine Bacteria Rare H (None) /hpf Urine Mucus Rare H (None) /hpf Urine Yeast (Budding) Few H (None) /hpf Assessment and Plan (1) Tonsillopharyngitis Current Visit: Yes Status: Acute Code(s): J02.9 - ACUTE PHARYNGITIS, UNSPECIFIED SNOMED Code(s): 71038338 (2) Infected tooth Current Visit: Yes Status: Acute Code(s): K04.7 - PERIAPICAL ABSCESS WITHOUT SINUS SNOMED Code(s): 402421484 (3) Fever Current Visit: Yes Status: Acute Code(s): R50.9 - FEVER, UNSPECIFIED SNOMED Code(s): 900134006 (4) Leukocytosis Current Visit: Yes Status: Acute Code(s): D72.829 - ELEVATED WHITE BLOOD CELL COUNT, UNSPECIFIED SNOMED Code(s): 620056009 Plan: 1patient presented to hospital with sepsis in this patient who did have fever elevated white count elevated lactic acid source likely infected tooth and the patient did have significant purulent tonsillopharyngitis especially to the left side and will need to cover for the polymicrobial oral antoni 2-patient to continue with Unasyn 3 g every 6 hours while waiting for the cult ure to finalize we will add cool solution for mild discomfort Multiple questions concern answered Dictation was produced using [email or web address] dictation software. please excuse any grammatical, word or spelling errors. Time with Patient: Less than 30
[2023-11-01] MEDS: FAMOTIDINE 20 MG/2 ML VIAL IV SCH (21:31)
[2023-11-02] MEDS: ENOXAPARIN 40 MG/0.4 ML SYRINGE SQ SCH (08:21)
[2023-11-02 09:08] LABS: BUN/Creat Ratio 19.75 Ratio (12.00-20.00); Blood Urea Nitrogen 7.9 mg/dL (9.0-27.0); Carbon Dioxide 20.7 mmol/L (21.6-31.8); Chloride 108 mmol/L (96-109); Glucose 69 mg/dL (70-110); Potassium 3.9 mmol/L (3.5-5.5); Sodium 140 mmol/L (135-145)
--- NOTE | 2023-11-02 10:02 | P.PN ---
Subjective Progress Note Date: 11/02/23 History of present illness: This is a 43-year-old female has a past medical history of tobacco use and dep endence. Patient has been treated for strep throat since July on multiple courses of antibiotics. She also underwent a root canal 2 weeks ago. She followed with her PCP yesterday was found to have fever and chills as well as nausea and vomiting was sent into the hospital for further evaluation. We have been asked to evaluate the patient for leukocytosis and fever. Patient denies having any chest pain, no previous cardiac history. Patient has been seen by infectious disease and covered with antibiotics. Chest x-ray: No acute process WBC 18, hemoglobin 14.7 electrolytes normal. BUN 12 creatinine 0.48. Lactic acid initially 2.8 followed by 0.6. Liver enzymes are normal. Urinalysis 4+ ketones, small blood, squamous cell 17. Urine hCG not detected. Influenza A, influenza B, RSV, COVID-19, group A strep not detected. Home cardiac medications: None 11/01 Blood cultures are status received. WBC count is down to 11.2 as of yesterday. Patient has been afebrile. Blood pressure 115/73, heart rate 69, pulse ox 98% on room air. Echocardiogram reveals normal LV function. EKG sinus rhythm with PACs Physical examination: Gen: This is a 43-year-old female in no acute distress VS: reviewed HEENT: Head is atraumatic, normocephalic. Pupils equal, round. Sclerae is anicteric. LUNGS: Clear to auscultation. No wheezes or rhonchi. No intercostal retractions. HEART: Regular rate and rhythm. No murmur. EXTREMITIES: No pedal edema. No calf tenderness. NEUROLOGICAL: Patient is awake, alert and oriented x3. Assessment: Jaw pain Recent root canal Recent strep throat Tobacco use and dependence Fever, leukocytosis Lactic acidosis Plan: Cardiology will sign off this case and follow on an as-needed basis. Please reconsult for any new concerns. Nurse practitioner note has been reviewed, I agree with documented findings and plan of care. Patient was seen and examined. Objective - Vital Signs Vital signs: Vital Signs Temp 98.1 F 11/02/23 07:20 Pulse 69 11/02/23 07:20 Resp 16 11/02/23 07:20 BP 115/73 11/02/23 07:20 Pulse Ox 98 11/02/23 07:20 FiO2 Intake & Output 11/01/23 11/02/23 11/02/23 18:59 06:59 18:59 Intake Total 1000 Balance 1000 Intake: Intake, IV Titration 1000 Amount Ampicillin-Sulbactam 3 gm 100 In Sodium Chloride 0.9% 100 ml @ 200 mls/hr IVPB Q6H BRANT Rx#:[id number] Sodium Chloride 0.9% 1, 900 000 ml @ 75 mls/hr IV . [id number] BRANT Rx#:[id number] Other: Voiding Method Toilet Toilet # Voids 3 - Labs CBC & Chem 7: 11/01/23 06:27 11/02/23 04:51 Labs: Abnormal Lab Results - Last 24 Hours (Table) 11/01/23 11/01/23 Range/Units 06:27 06:27 WBC 11.23 H (4.50-10.00) X 10*3/uL Hct 36.7 L (37.2-46.3) % Neutrophils # 8.76 H (1.80-7.70) X 10*3/uL ESR 23 H (0-20) mm/Hr Carbon Dioxide 18.6 L (21.6-31.8) mmol/L Anion Gap 14.40 H (4.00-12.00) mmol/L Creatinine 0.5 L (0.6-1.5) mg/dL Glucose 63 L (70-110) mg/dL Calcium 8.2 L (8.7-10.3) mg/dL Total Bilirubin <0.2 L (0.3-1.2) mg/dL C-Reactive Protein 5.10 H (0.00-0.80) mg/dL Total Protein 5.5 L (6.2-8.2) g/dL Albumin 3.4 L (3.8-4.9) g/dL
[2023-11-02 11:13] LABS: HCT 35.8 % (37.2-46.3); HGB 12.1 g/dL (12.0-15.0); MCH 30.6 pg (27.0-32.0); MCHC 33.8 g/dL (32.0-37.0); MCV 90.4 FL (80.0-97.0); NRBC Per 100 WBC 0 X 10*3/uL (0.00-0.01); Platelet Count 243 X 10*3/uL (140-440); RBC 3.96 X 10*6/uL (4.10-5.20); RDW 13.2 % (11.5-14.5); WBC 7.83 X 10*3/uL (4.50-10.00)
[2023-11-02 11:43] LABS: Basophils # (A) 0.05 X 10*3/uL (0.00-0.10); Basophils % (A) 0.6 %; Eosinophils % (A) 2.6 %; Lymphocytes # (A) 2.11 X 10*3/uL (0.90-5.00); Lymphocytes % (A) 26.9 %; Monocytes # (A) 0.71 X 10*3/uL (0.20-1.00); Monocytes % (A) 9.1 %; Neutrophils # (A) 4.75 X 10*3/uL (1.80-7.70); Neutrophils % (A) 60.7 %; RBC Morphology Normal (Normal)
--- NOTE | 2023-11-02 13:22 | P.PN ---
Subjective Progress Note Date: 11/02/23 Principal diagnosis: Reason for follow-up is fever infected tooth/tonsillopharyngitis Patient is a 43-year-old female current everyday smoker complaining of recurrent infection since July 2023, presented to hospital per advice of her primary care physician for further evaluation recently did have a right lower jaw infected tooth requiring RCT and the patient also noticed to have significant left sided tonsillopharyngitis. On today's visit that is 11/02/2023, Patient is afebrile patient is currently on room air and denies having any shortness of breath, the patient denies any chest pain or cough, the patient denies any nausea vomiting abdominal pain or diarrhea still complaining of some discomfort to the right lower jaw sores in the mouth have decreased in intensity and denies any difficulty swallowing. Patient white count normalized to 7.83, creatinine 0.4 cultures currently pending Objective - Vital Signs Vital signs: Vital Signs Temp 98.1 F 11/02/23 07:20 Pulse 69 11/02/23 07:20 Resp 16 11/02/23 07:20 BP 115/73 11/02/23 07:20 Pulse Ox 98 11/02/23 07:20 FiO2 Intake & Output 11/01/23 11/02/23 11/02/23 18:59 06:59 18:59 Intake Total 1000 Balance 1000 Intake: Intake, IV Titration 1000 Amount Ampicillin-Sulbactam 3 gm 100 In Sodium Chloride 0.9% 100 ml @ 200 mls/hr IVPB Q6H [facility] Rx#:[id number] Sodium Chloride 0.9% 1, 900 000 ml @ 75 mls/hr IV . [id number] [facility] Rx#:[id number] Other: Voiding Method Toilet Toilet # Voids 3 - Exam GENERAL DESCRIPTION: Middle-age male lying in bed in no distress HEENT; did have extensive left tonsillopharyngitis with pus points RESPIRATORY SYSTEM: Unlabored breathing , decreased breath sounds at bases HEART: S1 S2 regular rate and rhythm , ABDOMEN: Soft , no tenderness EXTREMITIES: No edema feet - Labs CBC & Chem 7: 11/02/23 04:51 11/02/23 04:51 Labs: Abnormal Lab Results - Last 24 Hours (Table) 11/01/23 11/01/23 11/02/23 Range/Units 06:27 06:27 04:51 ESR 23 H (0-20) mm/Hr Carbon Dioxide 18.6 L 20.7 L (21.6-31.8) mmol/L Anion Gap 14.40 H (4.00-12.00) mmol/L BUN 7.9 L (9.0-27.0) mg/dL Creatinine 0.5 L 0.4 L (0.6-1.5) mg/dL Glucose 63 L 69 L (70-110) mg/dL Calcium 8.2 L 8.0 L (8.7-10.3) mg/dL Total Bilirubin <0.2 L (0.3-1.2) mg/dL C-Reactive Protein 5.10 H (0.00-0.80) mg/dL Total Protein 5.5 L (6.2-8.2) g/dL Albumin 3.4 L (3.8-4.9) g/dL Assessment and Plan (1) Tonsillopharyngitis Current Visit: Yes Status: Acute Code(s): J02.9 - ACUTE PHARYNGITIS, UNSPECIFIED SNOMED Code(s): 64111338 (2) Infected tooth Current Visit: Yes Status: Acute Code(s): K04.7 - PERIAPICAL ABSCESS WITHOUT SINUS SNOMED Code(s): 093513700 (3) Fever Current Visit: Yes Status: Acute Code(s): R50.9 - FEVER, UNSPECIFIED SNOMED Code(s): 772783009 (4) Leukocytosis Current Visit: Yes Status: Acute Code(s): D72.829 - ELEVATED WHITE BLOOD CELL COUNT, UNSPECIFIED SNOMED Code(s): 644924124 Plan: 1patient presented to hospital with sepsis in this patient who did have fever elevated white count elevated lactic acid source likely infected tooth and the patient did have significant purulent tonsillopharyngitis especially to the left side and will need to cover for the polymicrobial oral antoni 2-patient did have resolution of her fever white count normalized we will check a x-ray of the mandible in view of persistent pain to the right lower jaw, and will continue with Unasyn 3 g every 6 hours for another 24 hours before transition her to oral biotics Family at the bedside multiple questions concern answered Dictation was produced using [employer] software. please excuse any grammatical, word or spelling errors. Time with Patient: Less than 30
--- NOTE | 2023-11-02 13:43 | XR ---
EXAMINATION TYPE: XR mandible complete DATE OF EXAM: 11/02/2023 COMPARISON: NONE HISTORY: right lower jaw infected tooth TECHNIQUE: 4 views of the mandible are submitted. FINDINGS: Soft tissue swelling around the right mandible. I do not see evidence of bony destructive p rocess. If symptoms persist consider CT. IMPRESSION: As above
--- NOTE | 2023-11-02 14:02 | P.PN ---
Subjective This is a pleasant 43 years old female with no significant past medical history. Who presents because of tooth/mouth infection. Patient is feeling discomfort in her mouth for a few days. She went to see her PCP Dr. Maria who prescribed her antibiotic for fewdays but patient did not fill it up. Patient is complaining from ringing sound in her right ear that is going on since September 26. Patient also has recurrent vomiting but no blood No abdominal pain. She has poor appetite. Patient with no bowel movements for a few days. She has heartburn She denies chest pain or dyspnea. No urinary complaints. No headache dizziness weakness or numbness. She denies smoking alcohol or illicit drugs. Patient had low-grade fever on admission 100.7. Rest of vitals are stable She has mild leukocytosis 18,000 came down to 11.2 Rest of labs including BMP liver enzymes were unremarkable Urine analysis is unremarkable but looks concentrated sample Influenza A and type B, RSV, SARS (coronavirus) are and detected Group A streptococcus is negative Chest x-ray is negative for acute process and I reviewed by myself ESR is mildly elevated 23 as well as CRP at 51 Lactic acid was elevated came back to normal Patient started on Unasyn. IV vancomycin was discontinued and normal saline 75 mL/h 11/02/2023 Patient mouth ulcers exudate and tonsillitis looks the same or slightly better. Patient states swelling is slightly better. No issues with breathing or eating She is having no more fever WBC Dr. Eaton changed at 7.8 today Mandible x-ray which was reviewed by myself showing soft tissue swelling around the right mandible per radiologist. No evidence of bony destruction per radiologist Patient currently To be covered with normal saline at 75 mL/h Patient and have a lot of questions which were answered to the obstruction Review of systems CONSTITUTIONAL: No fever, no malaise, no fatigue. CARDIOVASCULAR: No orthopnea, PND, no palpitations, no syncope. PULMONARY: No shortness of breath, no cough, no hemoptysis. GASTROINTESTINAL: No diarrhea, no nausea, no vomiting, no abdominal pain. Normoactive bowel sounds. NEUROLOGICAL: No headaches, no weakness, no numbness. HEMATOLOGICAL: Denies any bleeding or petechiae. GENITOURINARY: Denies any burning micturition, frequency, or urgency. MUSCULOSKELETAL/RHEUMATOLOGICAL: Denies any joint pain, swelling, or any muscle pain. ENDOCRINE: Denies any polyuria or polydipsia. Active Medications Generic Name Dose Route Start Last Admin Trade Name Freq PRN Reason Stop Dose Admin Al Hydroxide/Mg Hydroxide 30 0 ml 11/01/23 16:00 11/02/23 08:48 ml/ Lidocaine HCl 30 ml/ PO 5 ml Diphenhydramine HCl 75 mg/ TID [facility] Administration Nystatin 3,000,000 unit Enoxaparin Sodium 40 mg 11/02/23 09:00 11/02/23 08:21 Enoxaparin 40 Mg/0.4 Ml Syringe SQ 40 mg DAILY [facility] Administration Famotidine 20 mg 11/01/23 21:00 11/02/23 08:21 Famotidine 20 Mg/2 Ml Vial IV 20 mg Q12HR [facility] Administration Sodium Chloride 1,000 mls @ 75 mls/hr 10/31/23 16:15 11/02/23 01:37 Saline 0.9% IV 75 mls/hr .[id number] [facility] Administration Ampicillin Sodium/Sulbactam 100 mls @ 200 mls/hr 10/31/23 22:15 11/02/23 09:4 7 Sodium 3 gm/ Sodium Chloride IVPB 200 mls/hr Q6H [facility] Administration Protocol Ketorolac Tromethamine 15 mg 10/31/23 16:01 11/02/23 09:46 Ketorolac 15 Mg/Ml 1 Ml Vial IVP 11/03/23 16:02 15 mg Q6HR PRN Administration Moderate Pain (Scale 4 to 6) Naloxone HCl 0.2 mg 10/31/23 16:01 Naloxone 0.4 Mg/Ml 1 Ml Vial IV Q2M PRN Opioid Reversal Ondansetron HCl 4 mg 10/31/23 21:50 11/01/23 21:31 Ondansetron 4 Mg/2 Ml Vial IVP 4 mg Q6H PRN Administration Nausea And Vomiting Objective - Vital Signs Vital signs: Vital Signs Temp 98.2 F 11/02/23 13:05 Pulse 68 11/02/23 13:05 Resp 17 11/02/23 13:05 BP 142/81 11/02/23 13:05 Pulse Ox 99 11/02/23 13:05 FiO2 Intake & Output 11/01/23 11/02/23 11/02/23 18:59 06:59 18:59 Intake Total 1000 Balance 1000 Intake: Intake, IV Titration 1000 Amount Ampicillin-Sulbactam 3 gm 100 In Sodium Chloride 0.9% 100 ml @ 200 mls/hr IVPB Q6H [facility] Rx#:[id number] Sodium Chloride 0.9% 1, 900 000 ml @ 75 mls/hr IV . [id number] [facility] Rx#:[id number] Other: Voiding Method Toilet Toilet # Voids 3 - Exam GENERAL: The patient is alert and oriented x3, not in any acute distress. Well developed, well nourished. -HEENT: Pupils are round and equally reacting to light. EOMI. No scleral icterus. No conjunctival pallor. Normocephalic, atraumatic. No pharyngeal erythema. No thyromegaly. Multiple mouth ulcers including frontal lips with yellow discharge on the surface. Bilateral tonsillar enlargement left more than right and there is white-yellow discharge on the left side. Both tonsils are tender on external exam CARDIOVASCULAR: S1 and S2 present. No murmurs, rubs, or gallops. PULMONARY: Chest is clear to auscultation, no wheezing , no crackles. ABDOMEN: Soft, nontender, nondistended, normoactive bowel sounds. No palpable organomegaly. MUSCULOSKELETAL: No joint swelling or deformity. EXTREMITIES: No cyanosis, clubbing, or pedal edema. NEUROLOGICAL: Gross neurological examination did not reveal any focal deficits. SKIN: No rashes. no petechiae. - Labs CBC & Chem 7: 11/02/23 04:51 11/02/23 04:51 Labs: Abnormal Lab Results - Last 24 Hours (Table) 11/02/23 11/02/23 Range/Units 04:51 04:51 RBC 3.96 L (4.10-5.20) X 10*6/uL Hct 35.8 L (37.2-46.3) % Carbon Dioxide 20.7 L (21.6-31.8) mmol/L BUN 7.9 L (9.0-27.0) mg/dL Creatinine 0.4 L (0.6-1.5) mg/dL Glucose 69 L (70-110) mg/dL Calcium 8.0 L (8.7-10.3) mg/dL Microbiology - Last 24 Hours (Table) 10/31/23 16:05 Blood Culture - Preliminary Blood 10/31/23 16:25 Blood Culture - Preliminary Blood Assessment and Plan Assessment: bilateral tonsillitis with multiple mouth ulcers And white-yellow exudate Sepsis with fever and leukocytosis Recurrent nausea vomiting and dehydration secondary to above with elevated lactic acid came back to normal Dehydration secondary to above, improving Plan: Continue with antibiotic Continue with gentle hydration Infectious disease and ENT consults Follow-up culture results Labs and medication were reviewed.. Continue same treatment. Continue with symptomatic treatment. Resume home medication. Monitor labs and vitals. DVT and GI prophylaxis. Further recommendations as per clinical course of the patient DVT prophylaxis: Subcutaneous he Lovenox GI Prophylaxis: Pepcid Prognosis is guarded
--- NOTE | 2023-11-02 16:38 | P.GSCN ---
History of Present Illness Consult date: 11/02/23 Reason for Consult: Lip and oral lesion tonsil inflammation left side Requesting physician: Santhosh E Sheet History of present illness: This is a 43-year-old white female who was previously seen at [place] [facility] [facility]. She had 2 root canals performed month ago and I understand that there is significant amount of trauma to the lip trying to work around her teeth. Subsequent to that she last week developed left-sided throat pain. Ears felt full. She has had problems with chronic tonsillitis all of her life and is about 2 cases of strep throat annually. Last Sunday she was in the emergency room and was diagnosed with sepsis and then admitted. She saw infectious disease and has been on Unasyn. Her white blood cell count has dropped significantly. She is feeling better. Her hearing is better. She has a trip to [place] and is hoping to be better so she can leave for her vacation. She has lip lesions on the lower lip and she is improved significantly since admission. Her white count has returned normal. Review of Systems - Constitutional Reports as per HPI - EENT Ears, nose, mouth and throat: Reports as per HPI - Cardiovascular Reports as per HPI - Respiratory Reports as per HPI - Gastrointestinal Reports as per HPI - Genitourinary Genitourinary: Reports as per HPI - Musculoskeletal Reports as per HPI - Integumentary Reports as per HPI - Neurological Reports as per HPI - Psychiatric Reports as per HPI - Endocrine Reports as per HPI - Hematologic/Lymphatic Reports as per HPI - Allergic/Immunologic Reports as per HPI Past Medical History Past Medical History: No Reported History Additional Past Medical History / Comment(s): Smoker History of Any Multi-Drug Resistant Organisms: None Reported Past Surgical History: Section Additional Past Surgical History / Comment(s): ablasion uterine Past Anesthesia/Blood Transfusion Reactions: No Reported Reaction Past Psychological History: No Psychological Hx Reported Smoking Status: Current every day smoker Past Alcohol Use History: Occasional Past Drug Use History: None Reported Medications and Allergies Home Medications Medication Instructions Recorded Confirmed Type Amoxic-Pot Clav 500-125 mg 1 tab PO TID 10/31/23 10/31/23 History [Augmentin 500-125 mg] Ibuprofen [Motrin] 800 mg PO Q8H PRN 10/31/23 10/31/23 History Nystatin 100,000 Unit/ml Susp 4 ml PO DIRECTED 10/31/23 10/31/23 History [Mycostatin Oral Susp] valACYclovir HCL [Valtrex] 1,000 mg PO HS 10/31/23 10/31/23 History Allergies Allergy/AdvReac Type Severity Reaction Status Date / Time codeine AdvReac Nausea & Verified 10/31/23 16:40 Vomiting Surgical - Exam Osteopathic Statement: *. No significant issues noted on an osteopathic structural exam other than those noted in the History and Physical/Consult. Vital Signs Temp Pulse Resp BP Pulse Ox 100.7 F H 112 H 18 119/69 97 10/31/23 13:08 10/31/23 13:08 10/31/23 13:08 10/31/23 13:08 10/31/23 13:08 - General well developed, well nourished, no distress - Eyes PERRL, normal ocular movement - ENT Head is normocephalic the face is symmetric there's no abnormal movements is no tenderness to the sinuses or mastoids. There is no nodules or eruptions or parasites on scalp. Auricles are well formed canals are clear both tympanic membranes have some retraction. Nose is patent. Mouth and throat patient has stomatitis of the lower lip and some gingival swelling to the first and second molar on the right lower side. These of the teeth that had previous were canals. Left tonsil is enlarged exudative and swollen. No other lesions are noted. Neck shows some cervical lymphadenopathy worse on the left than on the right. - Respiratory normal expansion - Neurologic normal coordination, normal sensation - Musculoskeletal normal gait, normal posture - Psychiatric oriented to time, oriented to person, oriented to place, speech is normal Results - Labs 11/02/23 04:51 11/02/23 04:51 Abnormal Lab Results - Last 24 Hours (Table) 11/02/23 11/02/23 Range/Units 04:51 04:51 RBC 3.96 L (4.10-5.20) X 10*6/uL Hct 35.8 L (37.2-46.3) % Carbon Dioxide 20.7 L (21.6-31.8) mmol/L BUN 7.9 L (9.0-27.0) mg/dL Creatinine 0.4 L (0.6-1.5) mg/dL Glucose 69 L (70-110) mg/dL Calcium 8.0 L (8.7-10.3) mg/dL Microbiology - Last 24 Hours (Table) 10/31/23 16:05 Blood Culture - Preliminary Blood 10/31/23 16:25 Blood Culture - Preliminary Blood Diabetes panel 11/02/23 Range/Units 04:51 Sodium 140 (135-145) mmol/L Potassium 3.9 (3.5-5.5) mmol/L Chloride 108 (96-109) mmol/L Carbon Dioxide 20.7 L (21.6-31.8) mmol/L BUN 7.9 L (9.0-27.0) mg/dL Creatinine 0.4 L (0.6-1.5) mg/dL Glucose 69 L (70-110) mg/dL Calcium 8.0 L (8.7-10.3) mg/dL Calcium panel 11/02/23 Range/Units 04:51 Calcium 8.0 L (8.7-10.3) mg/dL Pituitary panel 11/02/23 Range/Units 04:51 Sodium 140 (135-145) mmol/L Potassium 3.9 (3.5-5.5) mmol/L Chloride 108 (96-109) mmol/L Carbon Dioxide 20.7 L (21.6-31.8) mmol/L BUN 7.9 L (9.0-27.0) mg/dL Creatinine 0.4 L (0.6-1.5) mg/dL Glucose 69 L (70-110) mg/dL Calcium 8.0 L (8.7-10.3) mg/dL Adrenal panel 11/02/23 Range/Units 04:51 Sodium 140 (135-145) mmol/L Potassium 3.9 (3.5-5.5) mmol/L Chloride 108 (96-109) mmol/L Carbon Dioxide 20.7 L (21.6-31.8) mmol/L BUN 7.9 L (9.0-27.0) mg/dL Creatinine 0.4 L (0.6-1.5) mg/dL Glucose 69 L (70-110) mg/dL Calcium 8.0 L (8.7-10.3) mg/dL Assessment and Plan (1) Stomatitis and mucositis Current Visit: Yes Status: Acute Code(s): K12.1 - OTHER FORMS OF STOMATITIS; K12.30 - ORAL MUCOSITIS (ULCERATIVE), UNSPECIFIED SNOMED Code(s): 53521704 (2) Cervical lymphadenopathy Current Visit: Yes Status: Acute Code(s): R59.0 - LOCALIZED ENLARGED LYMPH NODES SNOMED Code(s): 641968358 Plan: The patient has made great progress with use of Unasyn for her tonsillitis. Her stomatitis and mucositis is persisting and a short-term course of steroids would be helpful to reverse the symptoms. Therefore I've added Solu-Medrol to her therapy and I agree with the continued use of the Unasyn. Since her white count has normalized she would be a candidate for discharge with Augmentin and oral prednisone upon discharge. Patient is to follow up with a general dentist to evaluate the teeth. Dental x-rays are needed which cannot be done here in the hospital but more appropriately at the dental office. Given her some names and numbers for referral to a general dentist. Given her my card and my cell phone number she is to call me after discharge if any problems should arise. She is a candidate for tonsillectomy and we discussed that option. Time with Patient: Greater than 30
[2023-11-02] MEDS: methylPREDNISolone SOD SUCCI 125 MG/2 ML VIAL IV SCH (20:52)
[2023-11-03 07:59] VITALS: RESP 16
--- NOTE | 2023-11-03 14:20 | P.PN ---
Subjective Progress Note Date: 11/03/23 Principal diagnosis: Reason for follow-up is fever infected tooth/tonsillopharyngitis Patient is a 43-year-old female current everyday smoker complaining of recurrent infection since July 2023, presented to hospital per advice of her primary care physician for further evaluation recently did have a right lower jaw infected tooth requiring RCT and the patient also noticed to have significant left sided tonsillopharyngitis. On today's visit that is 11/03/2023, patient has been afebrile, patient is breathing comfortably and is currently on room air, patient denies having any significant cough no chest pain shortness of breath, patient denies nausea vomiting or diarrhea and no abdominal pain, the patient oral sores have improved feeling better wants to go home patient white count was 7.83 yesterday creatinine 0.4 culture has been negative Objective - Vital Signs Vital signs: Vital Signs Temp 98.2 F 11/03/23 07:07 Pulse 78 11/03/23 07:07 Resp 16 11/03/23 07:07 BP 121/73 11/03/23 07:07 Pulse Ox 97 11/03/23 07:07 FiO2 Intake & Output 11/02/23 11/03/23 11/03/23 18:59 06:59 18:59 Intake Total 1080 Balance 1080 Intake: Oral 1080 Other: # Voids 1 - Exam GENERAL DESCRIPTION: Middle-age male lying in bed in no distress HEENT; did have extensive left tonsillopharyngitis with pus points RESPIRATORY SYSTEM: Unlabored breathing , decreased breath sounds at bases HEART: S1 S2 regular rate and rhythm , ABDOMEN: Soft , no tenderness EXTREMITIES: No edema feet - Labs CBC & Chem 7: 11/02/23 04:51 11/02/23 04:51 Labs: Microbiology - Last 24 Hours (Table) 10/31/23 16:05 Blood Culture - Preliminary Blood 10/31/23 16:25 Blood Culture - Preliminary Blood Assessment and Plan (1) Tonsillopharyngitis Current Visit: Yes Status: Acute Code(s): J02.9 - ACUTE PHARYNGITIS, UNSPECIFIED SNOMED Code(s): 18304413 (2) Infected tooth Current Visit: Yes Status: Acute Code(s): K04.7 - PERIAPICAL ABSCESS WITHOUT SINUS SNOMED Code(s): 018178910 (3) Fever Current Visit: Yes Status: Acute Code(s): R50.9 - FEVER, UNSPECIFIED SNOMED Code(s): 833758854 (4) Leukocytosis Current Visit: Yes Status: Acute Code(s): D72.829 - ELEVATED WHITE BLOOD CELL COUNT, UNSPECIFIED SNOMED Code(s): 420685248 Plan: 1patient presented to hospital with sepsis in this patient who did have fever elevated white count elevated lactic acid source likely infected tooth and the patient did have significant purulent tonsillopharyngitis especially to the left side and will need to cover for the polymicrobial oral antoni 2-patient did have resolution of her fever white count normalized, x-ray of the mandible did show some swelling but no bony destruction patient has shown clinical improvement wants to go home we will consider 10-day course of oral Augmentin on discharge prescription sent to the pharmacy Multiple question concern answered Dictation was produced using [employer] dictation software. please excuse any grammatical, word or spelling errors. Time with Patient: Less than 30
[2023-11-03 14:21] VITALS: BP 136/82; PULSE 74; TEMP 98.9
--- NOTE | 2023-11-04 06:12 | P.DS ---
Providers Date of admission: 10/31/23 14:59 Attending physician: Reno Childers Consults: 10/31/23 16:01 Consult Physician Stat Consulting Provider: Rm Gillette Consult Reason/Comments: leukocytosis Do you want consulting provider notified?: Yes 10/31/23 16:03 Consult Physician Stat Consulting Provider: Milo Gonzales Consult Reason/Comments: leukocytosis/fever Do you want consulting provider notified?: Yes, Notify in am 11/01/23 13:40 Consult Physician Routine Consulting Provider: Iglesia Gannon Consult Reason/Comments: Tonsillitis, mouth ulcer, exudate, tinnitus Do you want consulting provider notified?: Yes Primary care physician: Carolyn Maria [facility] Course: Diagnoses: bilateral tonsillitis with multiple mouth ulcers And white-yellow exudate Sepsis with fever and leukocytosis Recurrent nausea vomiting and dehydration secondary to above with elevated lactic acid came back to normal Dehydration secondary to above, improving Hospital course: This is a pleasant 43 years old female with no significant past medical history. Who presents because of tooth/mouth infection. Patient is feeling discomfort in her mouth for a few days. Associated with multiple ulceration with white- yellowish exudate on the lips and tonsils which were tender bilaterally. Patient evaluated by infectious disease team and ENT service. Patient was treated with IV antibiotic Unasyn as well as steroids, IV Solu-Medrol prescribed by Dr. Gannon. Patient showed interval improvement and her tonsillitis and ulcers of her mouth is significantly started improving. Her pain and other symptoms also improving and patient feels much better that she was so adamant to be discharged today as she was planning to go to [place] this coming Saturday 11/04. With her clinical improvement patient was cleared by both Dr. Gannon and ID service. Patient will be discharged on Augmentin per ID team as well as prednisone taper and Pepcid which helped her gastritis like signs and symptoms. Patient she feels much improved. Denies any other new symptoms and she agrees to go home today, and after coming back from [place] per recommendation of ENT service patient will follow-up with Dr. Gannon for possible evaluation for tonsillectomy. Also contact information for dentist is provided for the patient of discharge so she can follow-up regarding her teeth. Problems and management plan were discussed with the patient and he verbalized understanding and acceptance Patient was found stable and can be discharged home in guarded prognosis however he needs follow-up as an outpatient. Patient was instructed to follow up with PCP Dr. Maria within one week and patient agrees Patient was instructed to follow-up with ENT Dr. Gannon in [address] With Dr. Gillette from infectious disease in 10 days. Physical exam Gen: patient is a AAOx3, no distress. Head and neck: Normocephalic, atraumatic. Bilateral tonsillitis, improvement. Multiple mouth ulcers with white exudates also improving CVS: S1-S2, RRR, no murmur Lungs: B/L CTA, no wheezing Abdomen: soft, no distention, no tenderness, positive bowel sounds Extremity: no leg edema or induration Time spent more than 35 minutes Patient Condition at Discharge: Fair Plan - Discharge Summary Discharge Rx Participant: No New Discharge Prescriptions: New Famotidine [Pepcid] 20 mg PO BID #60 tablet predniSONE 10 mg PO DIRECTED #30 tab Acetaminophen [Tylenol] 325 mg PO Q6H #10 tab Amoxic-Pot Clav 875-125Mg [Augmentin 875-125] 1 tab PO BID 10 Days #20 tab Continue Nystatin 100,000 Unit/ml Susp [Mycostatin Oral Susp] 4 ml PO DIRECTED Discontinued Ibuprofen [Motrin] 800 mg PO Q8H PRN PRN Reason: Fever And/ Or Pain valACYclovir HCL [Valtrex] 1,000 mg PO HS No Action Amoxic-Pot Clav 500-125 mg [Augmentin 500-125 mg] 1 tab PO TID Discharge Medication List Amoxic-Pot Clav 500-125 mg [Augmentin 500-125 mg] 1 tab PO TID 10/31/23 [History] Nystatin 100,000 Unit/ml Susp [Mycostatin Oral Susp] 4 ml PO DIRECTED 10/31/23 [History] Acetaminophen [Tylenol] 325 mg PO Q6H #10 tab 11/03/23 [Rx] Amoxic-Pot Clav 875-125Mg [Augmentin 875-125] 1 tab PO BID 10 Days #20 tab 11/03/23 [Rx] Famotidine [Pepcid] 20 mg PO BID #60 tablet 11/03/23 [Rx] predniSONE 10 mg PO DIRECTED #30 tab 11/03/23 [Rx] Follow up Appointment(s)/Referral(s): Iglesia Gannon, [Doctor of Osteopathic Medicine] - 10 Days Carolyn Maria MD [Primary Care Provider] - 1-2 days Rm Gillette MD [STAFF PHYSICIAN] - 10 Days Patient Instructions/Handouts: Famotidine (By mouth), Acetaminophen (By mouth), Prednisone (By mouth), Amoxicillin/Clavulanate Potassium (By mouth), Regular Diet (DC) Activity/Diet/Wound Care/Special Instructions: Regular diet Activity as tolerated we Recommend you to follow-up with a dentist within 1 week after discharge. Please call to make an appointment examples for dentist in [facility] Address: [address] [place] [address] phone: JOSE GREY Address: [address] [place] [address] ~[address] Discharge Disposition: HOME SELF-CARE
== END 2023-11-03 15:05 | disposition home or self-care (01) | DRG 872 ==
LOC: EC 12:33 → 5NMEDONC 14:59
PROVIDERS: ADMIT Hospitalist; ATTEND Hospitalist
DX: A41.9 Sepsis, unspecified organism (principal); E87.20 Acidosis, unspecified; E86.0 Dehydration; H93.19 Tinnitus, unspecified ear; J35.01 Chronic tonsillitis; F17.200 Nicotine dependence, unspecified, uncomplicated; R59.0 Localized enlarged lymph nodes; R61 Generalized hyperhidrosis; J02.9 Acute pharyngitis, unspecified; K04.7 Periapical abscess without sinus; K12.30 Oral mucositis (ulcerative), unspecified; K29.70 Gastritis, unspecified, without bleeding; Z11.52 Encounter for screening for COVID-19; Z28.311 Partially vaccinated for COVID-19; Z28.21 Immunization not carried out because of patient refusal; Z88.5 Allergy status to narcotic agent; Z79.2 Long term (current) use of antibiotics; Z98.811 Dental restoration status
CPT/HCPCS: 36415; 70110; 71046; 80048; 80053; 81001; 81025; 83605; 85025; 85027; 85652; 86140; 87040; 87636; 87651; 93005; 93306; 96361; 96365; 96366; 96367; 96368; 96375; 99285